=== PATIENT | female | born 1945 | race Caucasian/White ===

== ENCOUNTER → 2019-07-23 | Day surgery (SDC) | payer MEDICARE, BC ==
[2019-07-18 13:01] LABS: BASOPHILS # (AUTO) 0.1 (0.0-0.1); BASOPHILS % 1.2 % (0.0-1.0); EOSINOPHILS # (AUTO) 0.2 (0.0-0.4); EOSINOPHILS % 4.1 % (0.0-6.0); HEMATOCRIT 39.9 % (34.2-44.1); HEMOGLOBIN 13.7 g/dL (12.0-16.0); LYMPHOCYTES # (AUTO) 1.9 (1.0-3.2); LYMPHOCYTES % 37.2 % (18.0-39.1); MEAN CORPUSCULAR HEMOGLOBIN 29.7 pg (28-32); MEAN CORPUSCULAR HGB CONC 34.3 g/dL (31-35); MEAN CORPUSCULAR VOLUME 86.6 fL (81-99); MONOCYTES # (AUTO) 0.4 (0.2-0.8); MONOCYTES % 7.4 % (4.4-11.3); NEUTROPHILS # (AUTO) 2.6 (2.1-6.9); NEUTROPHILS % 49.9 % (38.7-80.0); PLATELET COUNT 216 x10e3/uL (140-360); RED BLOOD COUNT 4.61 x10e6/uL (3.6-5.1); RED CELL DISTRIBUTION WIDTH 14.2 % (11.7-14.4)
--- NOTE | 2019-07-18 13:07 | Diagnostic Imaging Report ---
Chest, 2 views, 07/18/2019. History: Preop, right knee surgery. Comparison: None available. Findings: The cardiomediastinal silhouette and pulmonary vasculature are within normal limits. There is biapical pleural thickening. A calcified granuloma is present in the right midlung. The lungs are otherwise clear without evidence of consolidation or pleural effusion. Mild degenerative changes are noted in the thoracic spine. There are no acute osseous or soft tissue abnormalities. Impression: No acute cardiopulmonary abnormality. Signed by: Charles Ortega on 07/18/2019 1:04 PM
[~2019-07-23] MED LIST: ACETAMINOPHEN 1000 MG/100 ML IV ONE; BUPIVACAINE 0.5%/EPI 30 ML SDV INJ ONE; CEFAZOLIN SOD 1 GM/NS 50ML 100 ML IV ONE; CELEBREX200 MG PO; DEXAMETHASONE SOD PHOS INJ 4 MG/ML VIAL ONE; EPINEPHRINE 1 MG/ML 30ML VIAL ONE; FENTANYL CITRATE/PF 100MCG/2 ML INJ ONE; KETOROLAC TROMETHAMINE 30 MG/ML VIAL ONE; LIDOCAINE HCL 2% LOCAL INJ 5 ML SDV VIAL INJ ONE; METOPROLOL SUCC50 MG PO; MIDAZOLAM HCL 2 MG/2 ML VIAL ONE; OMEPRAZOLE40 MG PO; ONDANSETRON HCL INJ 2MG/ML 2ML 2 MG/ML VIAL ONE; PROPOFOL IV EMULSION 10 MG/ML 20 ML VIAL ONE; SEVOFLURANE INHAL SOLN 250 ML PEN BTL ONE
--- OUTSIDE RECORDS SUMMARY | 2019-07-23 07:42 | XMS REPORT ---
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 Allergies, Adverse Reactions, Alerts This patient has no known allergies or adverse reactions. Medications This patient has no known medications. Results Test Description Test Time Test Comments Text Results Atomic Results Result Comments CHEST 2 VIEWS 2019-07-18 13:03:00 [place] [address] Patient Name: ELLEN RUBIO MR #: [id number] : 1945 Age/Sex: 74/F Req #: [id number] Adm Physician: Ordered by: GRADY MADDOX MD Report #: [id number] Location: OR Room/Bed: Procedure: [id number] DX/CHEST 2 VIEWS Exam Date: Exam Time: REPORT STATUS: Signed Chest, 2 views, 07/18/2019. History: Preop, right knee surgery. Comparison: None available. Findings: The cardiomediastinal silhouette and pulmonary vasculature are within normal limits. There is biapical pleural thickening. A calcified granuloma is present in the right midlung. The lungs are otherwise clear without evidence of consolidation or pleural effusion. Mild degenerative changes are noted in the thoracic spine. There are no acute osseous or soft tissue abnormalities. Impression: No acute cardiopulmonary abnormality. Signed by: Charles Ortega on 07/18/2019 1:04 PM Dictated By: CHARLES ORTEGA MD 1300 Transcribed By: CAROLINE on 07/18/19 1305 COPY TO: GRADY MADDOX MD MRI RIGHT KNEE WO 2019-07-16 12:16:00 [place] [address] Patient Name: ELLEN RUBIO MR #: [id number] : 1945 Age/Sex: 74/F Req #: [id number] Adm Physician: Ordered by: GRADY MADDOX MD Report #: [id number] Location: MRI Room/Bed: Procedure: [id number] MRI/MRI RIGHT KNEE WO Exam Date: Exam Time: REPORT STATUS: Signed TECHNIQUE: Magnetic resonance imaging of the RIGHT KNEE was pe rformed WITHOUT injected contrast. HISTORY: Right knee pain COMPARISON: None available. FINDINGS: LIGAMENTS AND TENDONS: ACL: Intact PCL: Intact Collateral ligaments: Intact Iliotibial band: Unremarkable Popliteal tendon: Intact Extensor mechanism: Intact JOINT: Menisci: Medial: Complex tearing of the body and posterior horn with dominant horizontal component. Lateral: Intact without discrete tear Articular Cartilage: Medial Compartment: Diffuse high-grade cartilage loss with areas of full-thickness fissuring. Lateral Compartment: Diffuse intermediate grade cartilage loss. Patellofemoral Compartment: Diffuse cartilage loss with areas of full-thickness erosion at the patellar apex and medial facet. Joint Fluid: Moderate effusion. BONE: No focal or infiltrative bone marrow replacing abnormality. No acute fracture. SOFT TISSUES: Otherwise, unremarkable. IMPRESSION: Medial meniscus complex tear with dominant horizontal component and high-grade medial compartment cartilage loss Signed by: Dr. Darling Lawrence M.D. on 07/16/2019 12:19 PM Dictated By: DARLING LAWRENCE MD 18 Transcribed By: CAROLINE on 07/16/191218 COPY TO: GRADY MADDOX MD
[2019-07-23 12:35] VITALS: BP 139/65
--- NOTE | 2019-07-26 00:01 | Operative Report ---
DATE OF PROCEDURE: 07/23/2019 SURGEON: Franck Trent MD PREOPERATIVE DIAGNOSES: 1. Right knee medial meniscus tear. 2. Right knee degenerative joint disease. POSTOPERATIVE DIAGNOSES: 1. Right knee medial meniscus tear. 2. Right knee degenerative joint disease. OPERATIONS AND PROCEDURES PERFORMED: The patient underwent a right knee examination under anesthesia; right knee arthroscopy; right knee partial medial meniscectomy; right knee chondroplasty of the patella, the trochlea, the medial femoral condyle, the medial tibial plateau, the lateral femoral condyle, and the lateral tibial plateau. 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 ANESTHESIA: General endotracheal intubation anesthesia. IV FLUIDS: Per the anesthesia record. BRIEF DESCRIPTION OF THE PATIENT'S OPERATIVE PROCEDURE: Ms. Longo was taken to the operating room, placed in supine position on the operating table. Following induction of general anesthesia as well as endotracheal intubation, the patient's right lower extremity was examined under anesthesia. She was found to have a mild effusion within the knee joint, but otherwise ligamentously stable knee. The patient's lower extremity was prepped and draped in standard surgical fashion. A two-port technique used to provide this patient arthroscopic evaluation of the knee joint. Examination of suprapatellar pouch and medial and lateral gutters found no evidence of loose bodies. There was, however, evidence of chondromalacia of the patella and trochlear surfaces. Scope was advanced to medial compartment. Examination of medial compartment demonstrated a torn medial meniscus. There was also chondromalacia of the articulating surfaces. A combination of biting forceps and a motorized shaver used to resect the torn portion of meniscus. Chondroplasties of the medial femoral condyle and medial tibial plateau were performed at this time. The scope was then advanced to the intercondylar notch and the anterior cruciate ligament was identified and found to be intact. Scope was advanced to lateral compartment. Chondromalacia of articulating surfaces was encountered. A chondroplasty of the lateral femoral condyle and lateral tibial plateau was performed at this time. Scope was then placed in suprapatellar pouch and chondroplasties of the patella and trochlea were performed. The knee was deflated with sterile normal saline. The portal sites were closed using 4-0 nylon suture. The portal sites as well as knee itself were injected with 0.5% Marcaine with epinephrine. Sterile dressings were applied. The patient was awakened and taken to postanesthesia care in stable condition. MD MINA Crockett/EDGAR /[id number]
== END | disposition home or self-care (01) ==
LOC: OR 07:35
PROVIDERS: ATTEND Specialist
DX: S83.221A Peripheral tear of medial meniscus, current injury, right knee, initial encounter (principal); M17.11 Unilateral primary osteoarthritis, right knee; M22.41 Chondromalacia patellae, right knee; Z91.048 Other nonmedicinal substance allergy status; K21.9 Gastro-esophageal reflux disease without esophagitis; I10 Essential (primary) hypertension; I45.10 Unspecified right bundle-branch block; R06.83 Snoring; J34.2 Deviated nasal septum; F95.9 Tic disorder, unspecified; X58.XXXA Exposure to other specified factors, initial encounter; Z01.810 Encounter for preprocedural cardiovascular examination; Z01.812 Encounter for preprocedural laboratory examination; Z01.818 Encounter for other preprocedural examination; Z88.6 Allergy status to analgesic agent; Z87.891 Personal history of nicotine dependence
CPT/HCPCS: 29881; 36415; 71046; 85025; 93005; J0131; J0690; J1100; J1885; J2001; J2250; J2405; J2704; J3010